=== PATIENT | male | born 1980 | race Caucasian/White ===

== ENCOUNTER 2016-09-07 08:00 | Outpatient (CLI) | payer MEDICAID | END 2016-09-07 08:01 | disposition home or self-care (01) | DX: E88.81 Metabolic syndrome and other insulin resistance (principal); E78.5 Hyperlipidemia, unspecified ==

== ENCOUNTER 2017-01-26 13:15 | Outpatient (CLI) | payer MEDICAID ==
--- NOTE | 2017-01-27 14:39 | MRI Report ---
EXAM: LEFT Thumb MRI Without Contrast EXAM DATE: 01/26/2017 02:12 PM. CLINICAL HISTORY: Ulnar collateral ligament pain. Injury two months ago. COMPARISON: None. TECHNIQUE: Multiplanar, multisequence T1-weighted and fluid-sensitive sequences of the thumb without contrast. Other: None. FINDINGS: Bones: No fractures or subluxations. No marrow edema. No bone lesions. Cartilage: The articular cartilage is unremarkable. Ligaments: The radial and ulnar collateral ligaments are intact. Tendons: The long flexor and extensor tendons appear unremarkable. Musculature: There is mild edema of the muscles of the thenar eminence over the anterior and radial a spect of the first metacarpophalangeal joint. The visible parts of the tendons also appear slightly e dematous but are intact. The findings suggest grade 1 strain of the flexor pollicis brevis and abduct or pollicis muscles. Other: No joint effusions or capsular rupture. The subcutaneous tissues are unremarkable. IMPRESSION: 1. Grade 1 strain of the flexor pollicis brevis and abductor pollicis muscles adjacent to their dista l insertion. The differential diagnosis includes a focal contusion. 2. The collateral ligaments appear normal. 3. The long flexor tendon appears intact. [facility] MUSCULOSKELET[facility] RADIOLOGY SECTION Referring Provider Line: [phone] SITE ID: [id number]
== END 2017-01-26 13:16 | disposition home or self-care (01) ==
LOC: DI 13:15
PROVIDERS: ATTEND Family Medicine
DX: S66.012A Strain of long flexor muscle, fascia and tendon of left thumb at wrist and hand level, initial encounter (principal); S60.012A Contusion of left thumb without damage to nail, initial encounter

== ENCOUNTER 2017-09-26 12:19 | Emergency (ER) | payer MEDICAID ==
--- NOTE | 2017-09-26 12:53 | ED Physician Documentation ---
History of Present Illness - Stated complaint Stated Complaint: JAW/NECK TIGHTNESS - Chief complaint Chief Complaint: Allergic Rx - History obtained from History obtained from: Patient - History of Present Illness Timing: Other (36-year-old gentleman with type 2 diabetes and migraine headaches. He says he takes Imitrex once every few months for a headache and almost always afterwards has mild side effects including neck pressure. They are usually not too bad because usually goes to bed straight after. He took Imitrex today around 1030 and maybe 20 minutes later started to develop neck tightness and chest tightness and shortness of breath. This was more noticeable than previous episodes where he took Imitrex. It is improving now but not gone. He has no personal history of heart disease and no recent travel. ) Review of Systems Constitutional: denies: Fever, Chills Ears: reports: Reviewed and negative Nose: reports: Reviewed and negative Throat: denies: Dental pain / toothache, Sore throat Cardiac: reports: Chest pain / pressure. denies: Palpitations, Pedal edema, Calf pain Respiratory: reports: Dyspnea PD PAST MEDICAL HISTORY - Past Medical History Past Medical History: Yes Cardiovascular: Hypertension, High cholesterol Respiratory: Asthma Neuro: Headache/migraine Endocrine/Autoimmune: Type 2 diabetes GI: Other Psych: Depression, Anxiety, ADD/ADHD, Other - Past Surgical History Past Surgical History: No - Present Medications Home Medications: Ambulatory Orders Medication Instructions Recorded Confirmed ALPRAZolam [Alprazolam] 0.25 - 0.5 mg PO TID PRN 06/27/14 06/26/17 Albuterol Sulfate [Albuterol 1 puffs IH Q4H PRN 06/27/14 06/26/17 Sulfate Hfa] Beclomethasone Dipropionate [Qvar] 1 puffs IH DAILY 06/27/14 06/26/17 Fluticasone [Flonase] 1 spray SANDRA DAILY 06/27/14 06/26/17 Lisinopril 10 mg PO DAILY 06/27/14 06/26/17 Nortriptyline [Pamelor] 10 mg PO QPM 06/27/14 06/26/17 SUMAtriptan [Sumatriptan] 5 mg PO ONCE PRN 06/27/14 06/26/17 Venlafaxine HCl [Venlafaxine HCl 150 mg PO DAILY 06/27/14 06/26/17 ER] lamoTRIgine [Lamictal] 100 mg PO DAILY 06/27/14 06/26/17 Beclomethasone 40 Mcg [Qvar 40] 1 puffs INH BID 06/26/17 06/26/17 Bupropion HCl [Bupropion Xl] 300 mg PO DAILY 06/26/17 06/26/17 Cyclobenzaprine HCl 5 - 10 mg PO QPM PRN 06/26/17 06/26/17 Doxepin HCl 10 mg PO QPM 06/26/17 06/26/17 Glycopyrrolate 2 mg PO BID PRN 06/26/17 06/26/17 Insulin Glargine,Hum.rec.anlog 10 unit SQ DAILY 06/26/17 06/26/17 [Basaglar Kwikpen U-100] Metformin HCl 1,500 mg PO DAILY 06/26/17 06/26/17 Methylphenidate HCl 20 mg PO BID 06/26/17 06/26/17 Ondansetron Odt [Zofran] 4 mg TL Q6H PRN 06/26/17 06/26/17 Sumatriptan Succinate [Imitrex] 100 mg PO BID PRN 06/26/17 06/26/17 - Allergies Allergies/Adverse Reactions: Allergies Allergy/AdvReac Type Severity Reaction Status Date / Time Sulfa (Sulfonamide Allergy Unknown Verified 11/04/15 02:19 Antibiotics) - Social History Does the pt smoke?: No Smoking Status: Never smoker Does the pt drink ETOH?: No Does the pt have substance abuse?: No - Immunizations Immunizations are current?: Yes PD ED PE NORMAL - Vitals Vital signs reviewed: Yes - General General: Alert and oriented X 3, No acute distress - HEENT HEENT: PERRL, EOMI, Ears normal, Moist mucous membranes, Pharynx benign - Neck Neck: Supple, no meningeal sign, No bony TTP - Cardiac Cardiac: RRR, No murmur - Respiratory Respiratory: No respiratory distress, Other (Very mild expiratory wheezes with good air motion, he was offered a breathing treatment but declined.) - Abdomen Abdomen: Soft, Non tender - Extremities Extremities: No edema, No calf tenderness / cord - Neuro Neuro: Alert and oriented X 3, 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 Eye Opening: Spontaneous Motor: Obeys Commands Verbal: Oriented GCS Score: 15 - Psych Psych: Normal mood, Normal affect Results - Vitals Vitals: Vital Signs - 24 hr 09/26/17 12:32 Temperature 35.9 C L Heart Rate 82 Respiratory 15 Rate Blood Pressure 150/107 H O2 Saturation 96 Oxygen O2 Source Room air - EKG (time done) 1233 Rate: Rate (enter#) (76) Rhythm: NSR [place]: Normal Intervals: Normal SD QRS: Normal Ischemia: Normal ST segments Computer interpretation: Agree with computer - Labs Labs: Laboratory Tests 09/26/17 12:58 Troponin I < 0.04 - Rads (name of study) 2v chest Radiology: EMP read contemporaneously (Normal) PD MEDICAL DECISION MAKING - ED course ED course: 36-year-old gentleman with chest pain that is temporally related to Imitrex use which he has had in the past. EKG is nonischemic, chest x-ray and troponin are normal. He will follow-up with his physician to pursue an alternative to Imitrex for when he has migraines. Departure - Departure Disposition: Home, Self Care Clinical Impression: Chest pain Qualifiers: Chest pain type: chest pain on breathing Qualified Code(s): R07.1 - Chest pain on breathing; R07.81 - Pleurodynia Medication side effect Qualifiers: Encounter type: initial encounter Qualified Code(s): T88.7XXA - Unspecified adverse effect of drug or medicament, initial encounter Condition: Good Record reviewed to determine appropriate education?: Yes Instructions: ED Chest Pain NonCardiac Comments: Follow-up with Dr. Jackson to pursue an alternative to Imitrex. Return if worse. Your blood pressure was elevated today on check into the emergency department. This does not mean that you have hypertension, it is a common phenomenon to come to the emergency department and have elevated blood pressure. I recommend that you see your primary care physician within the week to have it rechecked when you are feeling better.
--- NOTE | 2017-09-26 13:29 | XRAY Report ---
EXAM: CHEST RADIOGRAPHY EXAM DATE: 09/26/2017 12:59 PM. CLINICAL HISTORY: Chest pain. COMPARISON: 11/04/2015. TECHNIQUE: 2 views. FINDINGS: Lungs/Pleura: Mild increased density projecting over the heart on the lateral projection is likely se condary to vascular crowding and minimal atelectasis. No apparent focal consolidation to suggest pneumonia. No evidence of edema or pleural effusion. Mediastinum: Heart and mediastinal contours are unremarkable. Other: None. IMPRESSION: No acute disease or significant change from prior. [facility] Referring Provider Line: [phone] SITE ID: [id number]
--- NOTE | 2017-09-26 13:29 | XRAY Preliminary Report ---
Exam: XR CHEST 2 VIEW X-RAY IMPRESSION: No acute disease or significant change from prior. [facility] SITE ID: [id number]
[2017-09-26 13:53] VITALS: BP 131/96
== END 2017-09-26 13:53 | disposition home or self-care (01) ==
LOC: ED 12:19
DX: R07.1 Chest pain on breathing (principal); T39.8X5A Adverse effect of other nonopioid analgesics and antipyretics, not elsewhere classified, initial encounter; I10 Essential (primary) hypertension; E11.9 Type 2 diabetes mellitus without complications; Z79.84 Long term (current) use of oral hypoglycemic drugs
CPT/HCPCS: 36415; 71046; 84484; 93005; 99283; 99284

== ENCOUNTER 2017-11-07 08:41 | Outpatient (CLI) | payer MEDICAID ==
[2017-11-07 12:54] LABS: HEMOGLOBIN A1C 0.78 g/dL; HEMOGLOBIN A1C % 6.3 % (4.6-6.2)
== END 2017-11-07 08:42 ==
LOC: LAB.WCP 08:41
PROVIDERS: ATTEND Family Medicine
DX: E11.9 Type 2 diabetes mellitus without complications (principal); F90.0 Attention-deficit hyperactivity disorder, predominantly inattentive type; F32.9 Major depressive disorder, single episode, unspecified; G43.909 Migraine, unspecified, not intractable, without status migrainosus
CPT/HCPCS: 36415; 83036

== ENCOUNTER → 2018-04-25 | Outpatient (CLI) | payer MEDICAID ==
[2018-04-25 13:23] LABS: ALBUMIN 4.3 g/dL (3.2-5.5); ALBUMIN/GLOBULIN RATIO 1.2 (1.0-2.2); ALKALINE PHOSPHATASE 49 IU/L (42-121); ALT ALANINE AMINOTRANSFERASE 90 IU/L (10-60); AST ASPARTATE AMINOTRANSFERASE 38 IU/L (10-42); BILIRUBIN,TOTAL 0.9 mg/dL (0.2-1.0); BUN - BLOOD UREA NITROGEN 11 mg/dL (6-20); CALCIUM 9.2 mg/dL (8.5-10.3); CARBON DIOXIDE - CO2 29 mmol/L (21-32); CHLORIDE 103 mmol/L (101-111); CREATININE 0.9 mg/dL (0.6-1.2); GFR - MDRD 95 (>89); GLUCOSE 147 mg/dL (70-100); SODIUM 139 mmol/L (135-145); TOTAL PROTEIN 7.8 g/dL (6.7-8.2)
[2018-04-25 13:32] LABS: HB2 TOTAL 16.7 g/dL; HEMOGLOBIN A1C 0.78 g/dL; HEMOGLOBIN A1C % 6.4 % (4.6-6.2)
== END ==
LOC: LAB.WCP 08:33
PROVIDERS: ATTEND Family Medicine
DX: E11.9 Type 2 diabetes mellitus without complications (principal)
CPT/HCPCS: 36415; 80053; 82043; 83036; 84443

== ENCOUNTER 2018-12-04 12:03 | Outpatient (CLI) | payer MEDICAID ==
[2018-12-04 19:25] LABS: ALBUMIN 4.6 g/dL (3.2-5.5); ALBUMIN/GLOBULIN RATIO 1.2 (1.0-2.2); BILIRUBIN,TOTAL 0.7 mg/dL (0.2-1.0); CALCIUM 9.6 mg/dL (8.5-10.3); CREATININE 0.9 mg/dL (0.6-1.2); TOTAL PROTEIN 8.3 g/dL (6.7-8.2)
[2018-12-05 19:36] LABS: HB2 TOTAL 17.5 g/dL; HEMOGLOBIN A1C 0.97 g/dL; HEMOGLOBIN A1C % 7.2 % (4.6-6.2)
== END 2018-12-04 12:04 | disposition home or self-care (01) ==
LOC: LAB.WCP 12:03
PROVIDERS: ATTEND Family Medicine
DX: E11.9 Type 2 diabetes mellitus without complications (principal)
CPT/HCPCS: 36415; 80053; 81599; 83036

== ENCOUNTER 2019-04-20 09:14 | Emergency (ER) | payer MEDICAID ==
[2019-04-20] MEDS ORDERED: KETOROLAC 30 MG/ML VIAL IVP STA (10:17)
[2019-04-20] MEDS ORDERED: SODIUM CHLORIDE 0.9% 1,000 ML IV ONE (10:17)
[2019-04-20] MEDS ORDERED: DEXAMETHASONE 10 MG/ML VIAL IVP STA (10:17)
--- NOTE | 2019-04-20 10:20 | ED Physician Documentation ---
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 He does have a history previously of having back spasm today if this is bad as he is ever had it. He had a very difficult time getting into his house last night and had a very difficult time getting in and out of his bed this morning. He does state that with this practice he has lost about 10 pounds and he has been much more active than usual he has a daytime job as well. He is doing about 3 hours of rehearsal per night and going forward he does not have another performance for 4 days. Review of Systems Constitutional: denies: Fever Eyes: denies: Decreased vision Ears: denies: Ear pain Nose: denies: Congestion Throat: denies: Sore throat Cardiac: denies: Chest pain / pressure, Palpitations Respiratory: denies: Dyspnea, Cough GI: denies: Abdominal Pain, Nausea, Vomiting : denies: Dysuria, Frequency PD PAST MEDICAL HISTORY - Past Medical History Cardiovascular: Hypertension, High cholesterol Respiratory: Asthma Endocrine/Autoimmune: Type 2 diabetes GI: Other Psych: Depression, Anxiety, ADD/ADHD, Other - Past Surgical History Past Surgical History: No - Present Medications Home Medications: Ambulatory Orders Medication Instructions Recorded Confirmed ALPRAZolam [Alprazolam] 0.25 - 0.5 mg PO TID PRN 06/27/14 06/26/17 Albuterol Sulfate [Albuterol 1 puffs IH Q4H PRN 06/27/14 06/26/17 Sulfate Hfa] Beclomethasone Dipropionate [Qvar] 1 puffs IH DAILY 06/27/14 06/26/17 Fluticasone [Flonase] 1 spray SANDRA DAILY 06/27/14 06/26/17 Lisinopril 10 mg PO DAILY 06/27/14 06/26/17 Nortriptyline [Pamelor] 10 mg PO QPM 06/27/14 06/26/17 SUMAtriptan [Sumatriptan] 5 mg PO ONCE PRN 06/27/14 06/26/17 Venlafaxine HCl [Venlafaxine HCl 150 mg PO DAILY 06/27/14 06/26/17 ER] lamoTRIgine [Lamictal] 100 mg PO DAILY 06/27/14 06/26/17 Beclomethasone 40 Mcg [Qvar 40] 1 puffs INH BID 06/26/17 06/26/17 Bupropion HCl [Bupropion Xl] 300 mg PO DAILY 06/26/17 06/26/17 Cyclobenzaprine HCl 5 - 10 mg PO QPM PRN 06/26/17 06/26/17 Doxepin HCl 10 mg PO QPM 06/26/17 06/26/17 Glycopyrrolate 2 mg PO BID PRN 06/26/17 06/26/17 Insulin Glargine,Hum.rec.anlog 10 unit SQ DAILY 06/26/17 06/26/17 [Basaglar Kwikpen U-100] Metformin HCl 1,500 mg PO DAILY 06/26/17 06/26/17 Methylphenidate HCl 20 mg PO BID 06/26/17 06/26/17 Ondansetron Odt [Zofran] 4 mg TL Q6H PRN 06/26/17 06/26/17 Sumatriptan Succinate [Imitrex] 100 mg PO BID PRN 06/26/17 06/26/17 Cyclobenzaprine [Flexeril] 10 mg PO TID PRN #20 tablet 04/20/19 Hydrocodone/Acetaminophen 1 - 2 each PO Q6H PRN #14 tablet 04/20/19 [Hydrocodon-Acetaminophen 5-325] - Allergies Allergies/Adverse Reactions: Allergies Allergy/AdvReac Type Severity Reaction Status Date / Time Sulfa (Sulfonamide Allergy Unknown Verified 04/20/19 09:31 Antibiotics) - Social History Does the pt smoke?: No Smoking Status: Never smoker Does the pt drink ETOH?: No Does the pt have substance abuse?: No - Immunizations Immunizations are current?: Yes PD ED PE NORMAL - Vitals Vital signs reviewed: Yes (hpyertensive) - General General: Alert and oriented X 3, Well developed/nourished, Other (The patient moves slowly and appears stiff. It takes about 4 minutes to transfer from the wheelchair to the bed with agonizing pain to the patient. ) - HEENT HEENT: Atraumatic, PERRL, EOMI - Neck Neck: Supple, no meningeal sign, No bony TTP - Cardiac Cardiac: RRR, No murmur - Respiratory Respiratory: No respiratory distress, Clear bilaterally - Abdomen Abdomen: Normal bowel sounds, Soft, Non tender, Non distended, No organomegaly - Back Back: No CVA TTP, No spinal TTP, Other (There is dense spasm of the right paraspinous muscles of the lower lumbar spine. 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, No motor deficit, No sensory deficit, Normal speech Eye Opening: Spontaneous Motor: Obeys Commands Verbal: Oriented GCS Score: 15 - Psych Psych: Normal mood, Normal affect Results - Vitals Vitals: Vital Signs - 24 hr 04/20/19 04/20/19 04/20/19 09:27 11:33 11:41 Temperature 34.7 C L Heart Rate 68 58 L 54 L Respiratory 14 16 16 Rate Blood Pressure 132/91 H 115/84 H 133/77 H O2 Saturation 100 96 97 04/20/19 12:00 Temperature Heart Rate 51 L Respiratory 16 Rate Blood Pressure 114/79 O2 Saturation 96 Oxygen O2 Source Room air - Labs Labs: Laboratory Tests 04/20/19 04/20/19 04/20/19 10:14 10:22 10:22 WBC 5.6 RBC 4.85 Hgb 14.1 Hct 42.6 MCV 87.8 MCH 29.1 MCHC 33.1 RDW 12.0 Plt Count 216 MPV 10.4 Neut # (Auto) 3.0 Lymph # (Auto) 2.0 [place] # (Auto) 0.4 Eos # (Auto) 0.2 Baso # (Auto) 0.0 Absolute Nucleated RBC 0.00 Nucleated RBC % 0.0 Sodium 136 Potassium 3.9 Chloride 104 Carbon Dioxide 24 Anion Gap 8.0 BUN 15 Creatinine 0.8 Estimated GFR (MDRD) 109 Glucose 255 H POC Whole Bld Glucose 229 H Calcium 8.9 Total Bilirubin 1.1 H AST 36 ALT 72 H Alkaline Phosphatase 47 Total Protein 7.5 Albumin 4.1 Globulin 3.4 Albumin/Globulin Ratio 1.2 Lipase 60 H Procedures - IVC sono (time) 1020 Bedside IVC sono: IVC measures (cm) (1.22), Dehydration (est 1 liter deficit.) PD MEDICAL DECISION MAKING - ED course Complexity details: reviewed results, re-evaluated patient, considered differential, d/w patient ED course: 38 y/o with acute lumbar spasm is dehydrated on interrogation of the IVC and an IV is begun and he is administered decadron and toradal as well as saline. Departure - Departure Disposition: 01 Home, Self Care Clinical Impression: Dehydration Lumbago Qualifiers: Chronicity: acute Back pain laterality: right Sciatica presence: without sciatica Qualified Code(s): M54.5 - Low back pain Condition: Stable Instructions: ED Spasm Back No Trauma, ED Dehydration Follow-Up: Rodríguez Jackson MD [Primary Care Provider] - Prescriptions: Cyclobenzaprine [Flexeril] 10 mg PO TID PRN #20 tablet PRN Reason: Spasms Hydrocodone/Acetaminophen [Hydrocodon-Acetaminophen 5-325] 1 - 2 each PO Q6H PRN #14 tablet PRN Reason: pain Forms: Activity restrictions
[2019-04-20 10:41] LABS: BASOPHILS % (AUTO) 0.5 %; EOSINOPHILS # (AUTO) 0.2 10^3/uL (0.0-0.7); EOSINOPHILS % (AUTO) 3.1 %; HGB - HEMOGLOBIN 14.1 g/dL (14.0-18.0); LYMPHOCYTES % (AUTO) 35.3 %; MEAN CORPUSCULAR HEMOGLOBIN 29.1 pg (27.0-31.0); MEAN CORPUSCULAR HGB CONC 33.1 g/dL (32.0-36.0); MEAN CORPUSCULAR VOLUME 87.8 fL (80.0-94.0); MEAN PLATELET VOLUME 10.4 fL (7.4-11.4); MONOCYTES # (AUTO) 0.4 10^3/uL (0.0-1.0); MONOCYTES % (AUTO) 7.2 %; NEUTROPHILS % (AUTO) 53.5 %; PLT - PLATELET COUNT 216 10^3/uL (130-450); RED BLOOD COUNT 4.85 10^6/uL (4.70-6.10); WHITE BLOOD COUNT 5.6 x10^3/uL (4.8-10.8)
[2019-04-20 10:56] LABS: ALBUMIN 4.1 g/dL (3.2-5.5); ALBUMIN/GLOBULIN RATIO 1.2 (1.0-2.2); BILIRUBIN,TOTAL 1.1 mg/dL (0.2-1.0); CALCIUM 8.9 mg/dL (8.5-10.3); CREATININE 0.8 mg/dL (0.6-1.2); TOTAL PROTEIN 7.5 g/dL (6.7-8.2)
[2019-04-20] MEDS ORDERED: ONDANSETRON 4 MG/2 ML VIAL IVP STA (11:29)
[2019-04-20] MEDS ORDERED: HYDROmorphone 1 MG/ML CARPUJECT IVP STA (11:29)
[2019-04-20 12:43] VITALS: BP 122/83
== END 2019-04-20 12:40 | disposition home or self-care (01) ==
LOC: ED 09:14
DX: M54.5 Low back pain (principal); M62.830 Muscle spasm of back; E86.0 Dehydration; E11.9 Type 2 diabetes mellitus without complications; Z79.4 Long term (current) use of insulin; I10 Essential (primary) hypertension
CPT/HCPCS: 36415; 80053; 83690; 85025; 96374; 96375; 99284; 99285; J1170

== ENCOUNTER 2019-07-17 09:40 | Outpatient (CLI) | payer BC, MEDICAID ==
[2019-07-17 12:18] LABS: BASOPHILS # (AUTO) 0.1 10^3/uL (0.0-0.1); BASOPHILS % (AUTO) 0.8 %; EOSINOPHILS # (AUTO) 0.3 10^3/uL (0.0-0.7); EOSINOPHILS % (AUTO) 4.3 %; HGB - HEMOGLOBIN 15.5 g/dL (14.0-18.0); LYMPHOCYTES # (AUTO) 1.8 10^3/uL (1.5-3.5); LYMPHOCYTES % (AUTO) 27.9 %; MEAN CORPUSCULAR HEMOGLOBIN 29.4 pg (27.0-31.0); MEAN CORPUSCULAR HGB CONC 33.3 g/dL (32.0-36.0); MEAN CORPUSCULAR VOLUME 88.4 fL (80.0-94.0); MEAN PLATELET VOLUME 10.5 fL (7.4-11.4); MONOCYTES # (AUTO) 0.4 10^3/uL (0.0-1.0); MONOCYTES % (AUTO) 6.5 %; NEUTROPHILS # (AUTO) 3.8 10^3/uL (1.5-6.6); NEUTROPHILS % (AUTO) 60.2 %; PLT - PLATELET COUNT 297 10^3/uL (130-450); RED BLOOD COUNT 5.27 10^6/uL (4.70-6.10); RED CELL DISTRIBUTION WIDTH 11.6 % (12.0-15.0); WHITE BLOOD COUNT 6.3 x10^3/uL (4.8-10.8)
[2019-07-17 12:24] LABS: CHOL/HDL RATIO 6.2 (<5.0); CHOLESTEROL 223 mg/dL; CRP - C-REACTIVE PROTEIN 1.3 mg/dL (0-1.0); HDL CHOLESTEROL 36 mg/dL; LDL CHOLESTEROL,CALCULATED 136 mg/dL; LDL/HDL RATIO 3.8 (<3.6); URIC ACID 4.8 mg/dL (2.6-7.2); VLDL CHOLESTEROL 51 mg/dL
[2019-07-17 12:35] LABS: CREATININE,URINE 299.9 mg/dL; HB2 TOTAL 15.5 g/dL; HEMOGLOBIN A1C 1.61 g/dL; HEMOGLOBIN A1C % 11.7 % (4.6-6.2); MICROALBUMIN,URINE 8.1 mg/dL (0-300.0)
[2019-07-17 13:19] LABS: RHEUMATOID FACTOR NEGATIVE (Negative)
== END 2019-07-17 09:41 | disposition home or self-care (01) ==
LOC: LAB.WCP 09:40
PROVIDERS: ATTEND Family Medicine
DX: E11.9 Type 2 diabetes mellitus without complications (principal); R74.8 Abnormal levels of other serum enzymes; M25.50 Pain in unspecified joint
CPT/HCPCS: 36415; 80061; 82043; 82570; 83036; 83721; 84443; 84550; 85025; 85651; 86140; 86430

== ENCOUNTER 2021-06-06 11:11 | Outpatient (CLI) | payer MEDICAID ==
[2021-06-06 18:16] LABS: BASOPHILS # (AUTO) 0.1 10^3/uL (0.0-0.1); BASOPHILS % (AUTO) 0.8 %; EOSINOPHILS # (AUTO) 0.1 10^3/uL (0.0-0.7); EOSINOPHILS % (AUTO) 2.3 %; HCT - HEMATOCRIT 51.3 % (42.0-52.0); HGB - HEMOGLOBIN 16.9 g/dL (14.0-18.0); LYMPHOCYTES # (AUTO) 1.9 10^3/uL (1.5-3.5); LYMPHOCYTES % (AUTO) 30.2 %; MEAN CORPUSCULAR HEMOGLOBIN 29.8 pg (27.0-31.0); MEAN CORPUSCULAR HGB CONC 32.9 g/dL (32.0-36.0); MEAN CORPUSCULAR VOLUME 90.3 fL (80.0-94.0); MEAN PLATELET VOLUME 10.8 fL (7.4-11.4); MONOCYTES # (AUTO) 0.4 10^3/uL (0.0-1.0); MONOCYTES % (AUTO) 5.7 %; NEUTROPHILS # (AUTO) 3.8 10^3/uL (1.5-6.6); NEUTROPHILS % (AUTO) 60.7 %; PLT - PLATELET COUNT 257 10^3/uL (130-450); RED BLOOD COUNT 5.68 10^6/uL (4.70-6.10); RED CELL DISTRIBUTION WIDTH 11.9 % (12.0-15.0); WHITE BLOOD COUNT 6.2 x10^3/uL (4.8-10.8)
[2021-06-06 18:28] LABS: ALBUMIN 4.7 g/dL (3.2-5.5); ALBUMIN/GLOBULIN RATIO 1.1 (1.0-2.2); ALKALINE PHOSPHATASE 49 IU/L (42-121); ALT ALANINE AMINOTRANSFERASE 33 IU/L (10-60); AST ASPARTATE AMINOTRANSFERASE 23 IU/L (10-42); BILIRUBIN,TOTAL 0.8 mg/dL (0.2-1.0); BUN - BLOOD UREA NITROGEN 15 mg/dL (6-20); CALCIUM 9.6 mg/dL (8.5-10.3); CARBON DIOXIDE - CO2 24 mmol/L (21-32); CHLORIDE 96 mmol/L (101-111); CHOL/HDL RATIO 6.3 (<5.0); CHOLESTEROL 310 mg/dL; CREATININE 0.7 mg/dL (0.6-1.2); GFR - MDRD 126 (>89); GLUCOSE 331 mg/dL (70-100); HDL CHOLESTEROL 49 mg/dL; LDL CHOLESTEROL,CALCULATED 197 mg/dL; POTASSIUM 3.8 mmol/L (3.5-5.0); SODIUM 132 mmol/L (135-145); TOTAL PROTEIN 8.8 g/dL (6.7-8.2); TRIGLYCERIDES 320 mg/dL; URIC ACID 4.4 mg/dL (2.6-7.2); VLDL CHOLESTEROL 64 mg/dL
[2021-06-06 18:37] LABS: THYROID STIMULATING HORMONE 2.03 uIU/mL (0.34-5.60)
[2021-06-06 19:31] LABS: BILIRUBIN,URINE NEGATIVE (NEGATIVE); GLUCOSE, URINE (UA) >=1000 mg/dL (NEGATIVE); KETONES,URINE (UA) 40 mg/dL (NEGATIVE); LEUKOCYTE ESTERASE, URINE NEGATIVE (NEGATIVE); NITRITE,URINE NEGATIVE (NEGATIVE); OCCULT BLOOD,URINE TRACE-INTA (NEGATIVE); PROTEIN,URINE TRACE mg/dL (NEGATIVE); UROBILINOGEN,URINE 0.2 (NORMAL) E.U./dL (NORMAL)
[2021-06-06 19:36] LABS: CRP - C-REACTIVE PROTEIN < 1.0 mg/dL (0-1.0)
[2021-06-06 19:37] LABS: CLARITY,URINE CLEAR (CLEAR)
[2021-06-06 19:44] LABS: CREATININE,URINE 189.5 mg/dL; MICROALBUM/CREATININE RATIO,UR 71.2 ug/mg (<30.0); MICROALBUMIN,URINE 13.5 mg/dL (0-300.0)
[2021-06-06 20:44] LABS: ESTIMATED AVERAGE GLUCOSE 349 mg/dL (70-100); HEMOGLOBIN A1c% 13.8 % (4.27-6.07)
[2021-06-06 21:21] LABS: RBC,URINE 0-5 /HPF (0-5); SQUAMOUS EPITHELIAL CELL,UR RARE Squamous (<= Few); WBC,URINE 0-3 /HPF (0-3)
[2021-06-06 21:22] LABS: BACTERIA,URINE Rare /HPF (None Seen); MUCUS,URINE Few Strands
[2021-06-06 21:38] LABS: RHEUMATOID FACTOR NEGATIVE (Negative)
[2021-06-06 23:52] LABS: CHLAMYDIA TRACHOMATIS DNA NEGATIVE (NEGATIVE); NEISSERIA GONORRHOEAE DNA NEGATIVE (NEGATIVE)
[2021-06-08 15:51] LABS: ANA SCREEN NEGATIVE (NEGATIVE)
== END 2021-06-06 11:12 | disposition home or self-care (01) ==
LOC: LAB.N 11:11
PROVIDERS: ATTEND Nurse Practitioner
DX: E11.9 Type 2 diabetes mellitus without complications (principal); R53.83 Other fatigue; M25.50 Pain in unspecified joint; Z20.2 Contact with and (suspected) exposure to infections with a predominantly sexual mode of transmission
CPT/HCPCS: 36415; 80050; 80061; 81001; 81003; 82043; 82570; 82607; 83036; 83721; 84550; 85651; 86038; 86140; 86200; 86430; 86592; 87086; 87491; 87591; 87661

== ENCOUNTER 2021-06-06 16:17 | Outpatient (CLI) | payer MEDICAID ==
--- NOTE | 2021-06-07 10:50 | XRAY Report ---
PROCEDURE: Lumbar Spine Complete INDICATIONS: CHRONIC LOW BACK PX TECHNIQUE: 4 views of the lumbar spine were acquired. COMPARISON: None. FINDINGS: Bones: 5 [id number] vertebrae are present. There is normal bony alignment. No vertebral body compression fractures. No suspicious bony lesions. Minimal L4-L5 and L5-S1 degenerative disc change s. Oblique views demonstrate no pars interarticularis defects. Soft tissues: Overlying bowel gas pattern is normal. No suspicious soft tissue calcifications. IMPRESSION: 1. Minimal L4-L5 and L5-S1 degenerative disc disease. 2. No fracture. No acute osseous lesion. If there is continued clinical concern for pathology, then M RI should be considered for further evaluation. Reviewed by: Stephenie Meyer MD, PhD on 06/07/2021 10:49 AM PST Approved by: Stephenie Meyer MD, PhD on 06/07/2021 10:49 AM PST Station ID: [id number]
--- NOTE | 2021-06-07 10:51 | XRAY Report ---
PROCEDURE: Knee 4 View LT INDICATIONS: L KNEE PX TECHNIQUE: 4 views of the left knee(s) were acquired. COMPARISON: None. FINDINGS: Bones: No fractures or dislocations. No suspicious bony lesions. Mild tricompartmental osteoarthrit is. Soft tissues: Suprapatellar joint effusion. No suspicious soft tissue calcifications. IMPRESSION: 1. Mild tricompartmental osteoarthritis. 2. Nonspecific joint effusion. Recommend correlation with clinical and laboratory data. Reviewed by: Stephenie Meyer MD, PhD on 06/07/2021 10:50 AM PST Approved by: Stephenie Meyer MD, PhD on 06/07/2021 10:50 AM [facility] Station ID: [id number]
== END 2021-06-06 16:18 | disposition home or self-care (01) ==
LOC: DI.N 16:17
PROVIDERS: ATTEND Nurse Practitioner
DX: M17.12 Unilateral primary osteoarthritis, left knee (principal); M25.462 Effusion, left knee; M51.36 Other intervertebral disc degeneration, lumbar region; M51.37 Other intervertebral disc degeneration, lumbosacral region; E11.9 Type 2 diabetes mellitus without complications; R53.83 Other fatigue; M25.50 Pain in unspecified joint; Z20.2 Contact with and (suspected) exposure to infections with a predominantly sexual mode of transmission
CPT/HCPCS: 36415; 80050; 80061; 81001; 81003; 82043; 82570; 82607; 83036; 83721; 84550; 85651; 86038; 86140; 86200; 86430; 86592; 87086; 87491; 87591; 87661

== ENCOUNTER 2021-08-02 08:00 | Outpatient (CLI) | payer MEDICAID | END 2021-08-02 23:59 | disposition home or self-care (01) | LOC: LAB.N 08:00 | PROVIDERS: ATTEND Family Medicine | DX: R09.81 Nasal congestion (principal); Z20.822 Contact with and (suspected) exposure to COVID-19 ==

== ENCOUNTER 2021-12-21 12:32 | Outpatient (CLI) | payer MEDICAID ==
[2021-12-21 18:10] LABS: ALBUMIN 4.7 g/dL (3.2-5.5); ALBUMIN/GLOBULIN RATIO 1.1 (1.0-2.2); BILIRUBIN,TOTAL 0.6 mg/dL (0.2-1.0); CALCIUM 9.6 mg/dL (8.5-10.3); CREATININE 0.9 mg/dL (0.6-1.2)
[2021-12-21 20:23] LABS: ESTIMATED AVERAGE GLUCOSE 280 mg/dL (70-100); HEMOGLOBIN A1c% 11.4 % (4.27-6.07)
== END 2021-12-21 12:33 | disposition home or self-care (01) ==
LOC: LAB.N 12:32
PROVIDERS: ATTEND Nurse Practitioner
DX: E11.9 Type 2 diabetes mellitus without complications (principal)
CPT/HCPCS: 36415; 80053; 83036

== ENCOUNTER 2022-02-23 10:30 | Outpatient (CLI) | payer MEDICAID | END 2022-02-23 10:31 | disposition home or self-care (01) | LOC: MAC.MOP 10:30 | PROVIDERS: ATTEND Nurse Practitioner | DX: I47.2 Ventricular tachycardia (principal); I45.6 Pre-excitation syndrome; I49.1 Atrial premature depolarization; I49.3 Ventricular premature depolarization | CPT/HCPCS: 93246; 93248 ==

== ENCOUNTER 2022-05-25 17:28 | Outpatient (CLI) | payer MEDICAID ==
--- NOTE | 2022-05-25 22:45 | XRAY Report ---
PROCEDURE: Cervical Spine 2 View INDICATIONS: CERVICAL RADICULOPATHY TECHNIQUE: 3 views of the cervical spine were acquired. COMPARISON: CT cervical spine 11/04/2015 FINDINGS: Bones: No acute fractures or dislocations to the T1 level. The lateral masses of C1 appear intact o n the odontoid view. No suspicious bony lesions. Mild disc the sternum and degenerative endplate ch anges are most prominent at the C5-6 disc space level. There is mild reversal of the normal cervical lordosis that may be secondary to positioning or muscle spasm. Soft tissues: No prevertebral soft tissue swelling. IMPRESSION: Mild multilevel spondylosis appears mildly progressed when compared to the CT from 2015. Reviewed by: Nish Rolle MD on 05/25/2022 10:43 PM [facility] Approved by: Nish Rolle MD on 05/25/2022 10:43 PM [facility] Station ID: [id number]
== END 2022-05-25 17:29 | disposition home or self-care (01) ==
LOC: DI 17:28
PROVIDERS: ATTEND Registered Nurse
DX: M47.812 Spondylosis without myelopathy or radiculopathy, cervical region (principal)

== ENCOUNTER 2022-09-05 10:40 | Outpatient (CLI) | payer MEDICAID ==
[2022-09-05 18:34] LABS: ALBUMIN 4.4 g/dL (3.2-5.5); ALBUMIN/GLOBULIN RATIO 1.2 (1.0-2.2); ALKALINE PHOSPHATASE 40 IU/L (42-121); ALT ALANINE AMINOTRANSFERASE 35 IU/L (10-60); AST ASPARTATE AMINOTRANSFERASE 22 IU/L (10-42); BILIRUBIN,TOTAL 0.9 mg/dL (0.2-1.0); BUN - BLOOD UREA NITROGEN 12 mg/dL (6-20); CALCIUM 9.2 mg/dL (8.5-10.3); CARBON DIOXIDE - CO2 29 mmol/L (21-32); CHLORIDE 106 mmol/L (101-111); CHOL/HDL RATIO 3.5 (<5.0); CHOLESTEROL 181 mg/dL; CREATININE 0.9 mg/dL (0.6-1.2); GFR - MDRD 93 (>89); GLUCOSE 118 mg/dL (70-100); HDL CHOLESTEROL 51 mg/dL; LDL CHOLESTEROL,CALCULATED 111 mg/dL; LDL/HDL RATIO 2.2 (<3.6); POTASSIUM 4.5 mmol/L (3.5-5.0); SODIUM 141 mmol/L (135-145); TOTAL PROTEIN 8.1 g/dL (6.7-8.2); TRIGLYCERIDES 97 mg/dL; VLDL CHOLESTEROL 19 mg/dL
[2022-09-05 20:16] LABS: ESTIMATED AVERAGE GLUCOSE 131 mg/dL (70-100); HEMOGLOBIN A1c% 6.2 % (4.27-6.07)
== END 2022-09-05 10:41 | disposition home or self-care (01) ==
LOC: LAB.N 10:40
PROVIDERS: ATTEND Nurse Practitioner
DX: E11.9 Type 2 diabetes mellitus without complications (principal); E78.5 Hyperlipidemia, unspecified
CPT/HCPCS: 36415; 80053; 80061; 83036; 83721

== ENCOUNTER 2022-09-20 08:27 | Outpatient (CLI) | payer MEDICAID ==
--- NOTE | 2022-09-20 21:17 | MRI Report ---
PROCEDURE: BRAIN WO INDICATIONS: MIGRAINE THORNTON TECHNIQUE: Noncontrast axial T1 spin echo, axial T2 fast spin echo, sagittal and axial FLAIR, coronal T2 fast sp in echo, axial gradient echo, axial diffusion and ADC through the brain. COMPARISON: Correlation is made with prior head CT, 11/04/2015. FINDINGS: Image quality: Excellent. CSF Spaces: Basal cisterns are patent. No extra-axial fluid collections. Ventricles are normal in size and shape. Brain: No intracranial masses or hemorrhage. [place]/white matter interface is normal. Brainstem appe ars normal. Diffusion-weighted images demonstrate no acute ischemic insult. No chronic ischemic ins ults. Normal intravascular flow voids are present. Skull and face: Calvarium has normal marrow signal. Orbits appear normal. Sinuses: There is moderate mucosal thickening within the left maxillary sinus. Minimal mucosal thicke jose is seen elsewhere within the paranasal sinuses. 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 No mastoid or air cell fluid is seen. IMPRESSION: A cause of headache cannot be seen on these images. Additional findings: Focal left maxillary sinus disease Bilateral angelina bullosa Reviewed by: Gera De Los Santos MD on 09/20/2022 8:16 PM [facility] Approved by: Gera De Los Santos MD on 09/20/2022 8:16 PM [facility] Station ID: [id number]
== END 2022-09-20 08:28 | disposition home or self-care (01) ==
LOC: DI 08:27
PROVIDERS: ATTEND Nurse Practitioner
DX: G43.909 Migraine, unspecified, not intractable, without status migrainosus (principal)